=== PATIENT | male | born 1965 | race Caucasian/White ===

== ENCOUNTER 2018-10-17 00:49 | Emergency (ER) | payer MEDICAID ==
[2018-10-17 01:04] VITALS: BP 152/108
[2018-10-17] MEDS ORDERED: predniSONE 20 MG TAB PO ONE (01:16)
[2018-10-17] MEDS ORDERED: OXYCODONE/APAP 5/325MG PREPACK#4 BTL TAKEHOME ONE (01:16)
[2018-10-17] MEDS ORDERED: COLCHICINE 0.6 MG CAP/TAB PO ONE (01:16)
--- NOTE | 2018-10-17 01:20 | EDPHY ---
H & P Stated Complaint: gout Time Seen by Provider: 10/17/18 01:11 HPI/ROS: Chief Complaint: Right ankle pain, history of gout HPI: 53-year-old male with a history of gout presenting with right ankle pain which with worsening for the last 2 days. Patient states he ran out of his meloxicam have removed here from [place] 2 weeks ago. Pain is his usual. No fevers or chills. No redness. He has been ambulating with discomfort. He did drive here tonight. Is not taking any medications. ROS: 10 systems were reviewed and were negative except those elements noted in the HPI. PMH: Gout Social History: No smoking, no alcohol Family History: non-contributory Physical Exam: Gen: Awake, Alert, No Distress HEENT: Nose: no rhinorrhea Eyes: PERRLA, EOMI Mouth: Moist mucosa Neck: Supple, no JVD Ext: Right ankle swelling, no erythema, no bony tenderness. 2+ dorsalis pedis pulses. Sensations intact in all dermatomes. Skin: no rash Neuro: CN II-XII intact, Sensation grossly intact, Strength 5/5 in bilateral upper and lower extremities - Personal History Current Tetanus/Diphtheria Vaccine: Yes Current Tetanus Diphtheria and Acellular Pertussis (TDAP): Yes - Medical/Surgical History Hx Asthma: No Hx Chronic Respiratory Disease: No Hx Diabetes: No Hx Cardiac Disease: No Hx Renal Disease: No Hx Cirrhosis: No Hx Alcoholism: No Hx HIV/AIDS: No Hx Splenectomy or Spleen Trauma: No Other PMH: gout - Social History Smoking Status: Current every day smoker Constitutional: Initial Vital Signs Temperature (C) 36.4 C 10/17/18 01:01 Heart Rate 96 10/17/18 01:01 Respiratory Rate 18 10/17/18 01:01 Blood Pressure 152/108 H 10/17/18 01:01 O2 Sat (%) 96 10/17/18 01:01 O2 Delivery Mode Room Air Allergies/Adverse Reactions: No Known Allergies Allergy (Unverified 10/17/18 01:04) Home Medications: Medication Instructions Recorded Colchicine [Colchicine (*)] 0.6 mg PO BID #14 tab 10/17/18 Oxycodone-Acetaminophen 10-325 10/17/18 Zoloft 100mg (*) 10/17/18 oxyCODONE HCL/ACETAMINOPHEN 1 - 2 each PO Q6HRS PRN #12 tablet 10/17/18 [Oxycodone-Acetaminophen 5-325] predniSONE 60 mg PO DAILY #15 tab 10/17/18 Medical Decision Making ED Course/Re-evaluation: 54-year-old male with acute gout flare. Will start him on prednisone colchicine and send him home with some oxycodone. Will refer to [facility] for further evaluation. Departure - Departure Disposition: Home, Routine, Self-Care Clinical Impression: Gout Condition: Good Instructions: Gout (ED) Additional Instructions: Take ibuprofen 600 mg 3 times a day. Take the prednisone 60 mg daily. Continue taking the colchicine as prescribed. Take the oxycodone with acetaminophen as needed for breakthrough pain. Follow up with [facility] in 3-4 days for further evaluation. Referrals: [facility],. [Clinic] - As per Instructions Prescriptions: oxyCODONE HCL/ACETAMINOPHEN [Oxycodone-Acetaminophen 5-325] 1 - 2 each PO Q6HRS PRN #12 tablet PRN Reason: Pain, Severe Colchicine [Colchicine (*)] 0.6 mg PO BID #14 tab predniSONE 60 mg PO DAILY #15 tab
== END 2018-10-17 01:47 | disposition home or self-care (01) ==
DX: M10.9 Gout, unspecified (principal)
CPT/HCPCS: J7512

== ENCOUNTER 2018-11-28 10:49 | Emergency (ER) | payer MEDICAID ==
--- NOTE | 2018-11-28 12:36 | EDPHY ---
General Time Seen by Provider: 11/28/18 12:36 Narrative: CLINICAL IMPRESSION: Gout flare ASSESSMENT/PLAN: Patient is a 53-year-old male with a significant history of hypertension, gout, depression and chronic pain who presents to the emergency department with complaints of recurrent left ankle pain. Patient is afebrile, he is uncomfortable appearing however not toxic-appearing. Physical examination reveals general edema to the left ankle with generalized tenderness to palpation. History and physical examination is most consistent with gouty flare. There is no evidence of septic joint, traumatic injury, DVT, compartment syndrome or neurovascular compromise. The patient has established to himself at [facility] however he is still awaiting a primary care provider for formal evaluation. Case management facilitated ensuring follow-up tomorrow at [facility] to establish care for ongoing medication needs. Patient was given prednisone, colchicine and his meloxicam was refilled. Patient eager to be established and understand importance of follow-up. Return precautions discussed, he will return for worsening or uncontrolled pain, redness/warmth of the joint, fever, calf pain or for any other concerning symptom. Patient verbalizes understanding and is in agreement with plan. DIFFERENTIAL DX: Differential diagnosis including but not limited to gout flare, septic joint, trauma, fracture, dislocation, DVT ED COURSE: 1306: Discussed with Dr. Royal CHIEF COMPLAINT: Left ankle pain HPI: Patient is a 53-year-old male with a significant history of hypertension, gout, depression and chronic pain who presents to the emergency department complaints of left ankle pain. Patient endorses a longstanding history of gout involving his feet, ankles, elbows and knees. Patient with gouty flare approximately a month ago, is new to the area and has reached out to [facility] and is awaiting PCP placement. Patient reports yesterday he had a sudden onset of left ankle pain that is very typical for his gouty flares; exactly like previous episodes. He denies any fevers, chills or trauma. There has been no redness or open wounds. Patient is not taking anything for pain. PAST MEDICAL HISTORY: Hypertension, gout, depression and chronic pain Family History: Not contributory Social History: Current smoker ROS: A full 10 point review of systems was negative except for those mentioned in HPI. PHYSICAL EXAM: General Appearance: Well developed, uncomfortable appearing but in no acute distress. HEENT: Normocephalic, atraumatic. External ears normal. Nares clear. Oropharynx clear. Eyes: PERRLA, EOMI intact. Conjunctiva pink, no pallor or injection. Neck: Supple, nontender, no lymphadenopathy, no midline pain, FROM, no meningismus. Respiratory: There are no retractions, lungs are clear to auscultation. Cardiac: Regular rate and rhythm, no murmurs or gallops. Gastrointestinal: Abdomen is soft, nontender, bowel sounds normal, no masses/ hernia, no rigidity, guarding or focal peritoneal findings. Skin: Warm, dry, no rashes, no nodules on palpation. Upper Extremities: Intact distal pulses, Full range of motion intact, no tenderness, no ecchymosis or edema. Lower Extremities: Intact distal pulses, No cyanosis, No calf tenderness bilaterally. Generalized edema noted to the left ankle with associated tenderness to palpation and limited range of motion. There is no overlying erythema or calor. There are no open wounds. There is no tenderness to the foot or digits. Dorsalis pedis is 2+. MEDICAL DECISION MAKING: Patient was seen independently. Secondary supervising physician at time of evaluation was Dr. Royal, she did not evaluate this patient. Diagnosis: Acute gout flare. New, requires workup Summary: See Assessment and Plan for summary of ED visit Clinical lab tests: Not applicable. Independent visualization of images, tracing, or specimens: Not applicable. Decision to obtain medical records or history from someone other than the patient: No Review / Summarize previous medical records: Yes Discussed patient with another provider: Yes, Dr. Royal Patient Progress: Stable, discharged. - History Smoking Status: Current every day smoker - Objective Vital Signs: Initial Vital Signs Temperature (C) 36.3 C 11/28/18 10:52 Heart Rate 86 11/28/18 10:52 Respiratory Rate 18 11/28/18 10:52 Blood Pressure 134/94 H 11/28/18 10:52 O2 Sat (%) 96 11/28/18 10:52 O2 Delivery Mode Room Air Allergies/Adverse Reactions: No Known Allergies Allergy (Unverified 10/17/18 01:04) Home Medications: Medication Instructions Recorded Colchicine [Colchicine (*)] 0.6 mg PO BID #14 tab 10/17/18 Oxycodone-Acetaminophen 10-325 10/17/18 Zoloft 100mg (*) 10/17/18 oxyCODONE HCL/ACETAMINOPHEN 1 - 2 each PO Q6HRS PRN #12 tablet 10/17/18 [Oxycodone-Acetaminophen 5-325] predniSONE 60 mg PO DAILY #15 tab 10/17/18 Colchicine [Colchicine (*)] 0.6 mg PO ONCE 1 Days tab 11/28/18 Meloxicam [Mobic 15 mg] 15 mg PO DAILY #10 tablet 11/28/18 methylPREDNISolone [Medrol Dose 1 each PO AD #1 ea 11/28/18 Trung] Medications Given: Discontinued Medications Hydrocodone Bitart/Acetaminophen (Sayner 5/325) 2 tab PO EDNOW ONE Stop: 11/28/18 13:02 Last Admin: 11/28/18 13:10 Dose: 2 tab Colchicine (Colchicine) 1.2 mg PO EDNOW ONE Stop: 11/28/18 13:05 Last Admin: 11/28/18 13:10 Dose: 1.2 mg Ibuprofen (Motrin) 600 mg PO EDNOW ONE Stop: 11/28/18 13:05 Last Admin: 11/28/18 13:10 Dose: 600 mg Prednisone (Prednisone) 60 mg PO ONCE ONE Stop: 11/28/18 13:06 Last Admin: 11/28/18 13:10 Dose: 60 mg Departure - Departure Disposition: Home, Routine, Self-Care Clinical Impression: Gout Condition: Good Instructions: Gout (ED) Additional Instructions: DISCHARGE INSTRUCTIONS FROM YOUR DOCTOR Thank you for visiting our emergency department today. Please keep in mind that discharge from the emergency department does not mean that there is nothing wrong - it simply means that we have not identified an emergency condition that requires further evaluation or treatment in the hospital. You should always plan to follow up with primary care for re-evaluation of your condition in the next 2-3 days. Rest, ice (on and off), elevate the affected joint(s) as much as possible above the level of the heart to decrease pain and swelling. Drink plenty of water each day to avoid dehydration. Stop smoking as soon as possible. Avoid all alcohol. Pay careful attention to the amount of protein you eat. Your daily diet should emphasize fruits, vegetables, whole grains, and fat-free or low-fat milk products. Avoid Aspirin. Meloxicam as prescribed until the pain is tolerable. Be sure to dose with food. Stop for stomach upset. Avoid prolonged use. Do not combine with Ibuprofen, Aleve, or other over the counter anti- inflammatories. Medrol Dosepak. Repeat your colchicine dose in 1 hr. Tylenol every 4-6 hours as directed as needed for less severe pain. Do not exceed 4000 mg in 24 hours. Schedule a follow-up with a primary care provider to be seen in follow-up in the next 3-5 days. Seek medical evaluation for any development of calf pain, calf swelling, chest pain, rapid or irregular heart beat, shortness of breath, dizziness, weakness, fainting or other concerns. Return for increased pain or swelling, redness or warmth of the skin, numbness, tingling or weakness of the foot or ankle, discoloration of the toes, coolness of the foot or toes, fever, chills, calf pain/redness/and/or swelling, inability to move your toes or move the ankle or foot, knee, thigh or hip pain, foot pain, chest pain, shortness of breath, abdominal pain, dizziness, weakness , fainting, for abdominal pain, bloody stools, black tarry stools, or any other new, worsening or worrisome symptoms. People present with illnesses and injuries in different ways, and it is always possible that we have missed something. You may always return for re-evaluation if symptoms worsen or if they are not improving or if you develop new/different symptoms. Again, thank you for choosing our emergency department. We hope that you feel better. The [facility] has walk-in appointments for the homeless at the following days/locations. No appointment is needed. Tuesday 8-10 am @ [facility] 11 AM-1 PM @ [facility] Tuesday 8-10:30 AM @ [facility] Tuesday 8-10 AM @ [facility] 2-4 PM @ [facility] Tuesday 8-10 AM @ [facility] Referrals: NONE *PRIMARY CARE P,. [Primary Care Provider] - As per Instructions Prescriptions: Colchicine [Colchicine (*)] 0.6 mg PO ONCE 1 Days tab Meloxicam [Mobic 15 mg] 15 mg PO DAILY #10 tablet methylPREDNISolone [Medrol Dose Trung] 1 each PO AD #1 ea
[2018-11-28] MEDS ORDERED: HYDROCODONE/APAP 5/325 TAB PO ONE (13:01)
[2018-11-28] MEDS ORDERED: IBUPROFEN 600 MG TAB PO ONE (13:04)
[2018-11-28] MEDS ORDERED: COLCHICINE 0.6 MG CAP/TAB PO ONE (13:04)
[2018-11-28] MEDS ORDERED: predniSONE 20 MG TAB PO ONE (13:05)
[2018-11-28 13:48] VITALS: BP 108/80
--- NOTE | 2018-11-28 14:11 | ASMTCMCOM ---
CM Note CM Note Notes: Follow up appointment made with [facility]. 11/29/18 @ 11:25AM with Katherine Nolen Date Signed: 11/28/2018 02:10 PM Electronically Signed By:Hailee Evans LCSW
== END 2018-11-28 14:09 | disposition home or self-care (01) ==
DX: M10.9 Gout, unspecified (principal); G89.29 Other chronic pain; I10 Essential (primary) hypertension; F32.9 Major depressive disorder, single episode, unspecified
CPT/HCPCS: J7512